=== PATIENT | male | born 1970 | race Caucasian/White ===

== ENCOUNTER 2016-10-30 22:47 | Emergency (ER) | payer BC ==
--- NOTE | ~2016-10-30 | CR106 ---
[facility] A Service of [facility] & [facility] RADIOLOGY TEXT RESULTS PATIENT: TONY RICHARDS LOCATION: [facility] : 74 UNIT #: [id number] AGE: [address]: Kiya Cruz MD SEX: M ORDER DR: [id number] [facility] [address] [place], [place] [address] [id number] E MR#: [id number] Acc #: [id number] NAME: TONY RICHARDS. : 1970 SEX: M STUDY DATE/TIME: 10/30/2016 21:29 UNIT: [facility] ROOM: STUDY DESCRIPTION: CR Femur 2 Views Lt Attending Physician: Kiya Cruz M.D. Ordering Physician: Kelechi Grigsby D.O. Primary Care Physician: Rola Marcus M.D. MEDICAL IMAGING REPORT This report is preliminary unless electronic signature is present EXAM Left femur AP and lateral HISTORY Leg pain after crush injury today. FINDINGS AP and lateral views of left femur demonstrate satisfactory bone alignment. Minimal hypertrophic changes in the knee and left hip. No fracture. IMPRESSION No acute findings. Dictated by... Abdelrahman Joyce M.D. THIS IS AN ELECTRONICALLY VERIFIED REPORT Abdelrahman Joyce M.D. at 10/31/2016 5:16 PM DFL/jamal TD: 10/31/2016 03:54 JOB #: [id number] MEDICAL IMAGING REPORT Page 1 of 1 COPY
--- NOTE | ~2016-10-30 | CR169 ---
[facility] A Service of [facility] & [facility] RADIOLOGY TEXT RESULTS PATIENT: TONY RICHARDS LOCATION: [facility] : 74 UNIT #: [id number] AGE: [address]: Kiya Cruz MD SEX: M ORDER DR: [id number] [facility] [address] [place], [place] [address] [id number] E MR#: [id number] Acc #: [id number] NAME: TONY RICHARDS. : 1970 SEX: M STUDY DATE/TIME: 10/30/2016 21:23 UNIT: [facility] ROOM: STUDY DESCRIPTION: CR Knee 2 Views Lt Attending Physician: Kiya Cruz M.D. Ordering Physician: Kelechi Grgisby D.O. Primary Care Physician: oRla Marcus M.D. MEDICAL IMAGING REPORT This report is preliminary unless electronic signature is present EXAM Left knee HISTORY Crush injury today and knee pain. FINDINGS 2 views left knee demonstrate satisfactory knee alignment. No joint space narrowing, fracture or effusion. Prominent enthesophytes along the superior and inferior margins of the patella. IMPRESSION No acute findings. Satisfactory knee alignment. Dictated by... Abdelrahman Joyce M.D. THIS IS AN ELECTRONICALLY VERIFIED REPORT Abdelrahman Joyce M.D. at 10/31/2016 5:16 PM DFL/jamal TD: 10/31/2016 03:43 JOB #: [id number] MEDICAL IMAGING REPORT Page 1 of 1 COPY
--- NOTE | ~2016-10-30 | CR206 ---
[facility] A Service of [facility] & [facility] RADIOLOGY TEXT RESULTS PATIENT: TONY RICHARDS LOCATION: [facility] : 74 UNIT #: [id number] AGE: [address]: Kiya Cruz MD SEX: M ORDER DR: [id number] [facility] [address]. [place], [place] [address] [id number] E MR#: [id number] Acc #: [id number] NAME: TONY RICHARDS. : 1970 SEX: M STUDY DATE/TIME: 10/30/2016 21:27 UNIT: [facility] ROOM: STUDY DESCRIPTION: CR Pelvis 1 or 2 Views Attending Physician: Kiya Cruz M.D. Ordering Physician: Kelechi Grigsby D.O. Primary Care Physician: Rola Marcus M.D. MEDICAL IMAGING REPORT This report is preliminary unless electronic signature is present EXAM AP pelvis HISTORY Pelvic pain after crush injury today. FINDINGS AP view of the pelvis demonstrates satisfactory bone alignment. No fracture, joint space narrowing or dislocation. Normal mineralization. IMPRESSION No acute findings. No fracture. Dictated by... Abdelrahman Joyce M.D. THIS IS AN ELECTRONICALLY VERIFIED REPORT Abdelrahman Joyce M.D. at 10/31/2016 5:16 PM DFL/jamal TD: 10/31/2016 03:48 JOB #: [id number] MEDICAL IMAGING REPORT Page 1 of 1 COPY
--- NOTE | ~2016-10-30 | CR63 ---
[facility] A Service of [facility] & [facility] RADIOLOGY TEXT RESULTS PATIENT: TONY RICHARDS LOCATION: [facility] : 74 UNIT #: [id number] AGE: [address]: Kiya Cruz MD SEX: M ORDER DR: [id number] [facility] [address] [place], [place] [address] [id number] E MR#: [id number] Acc #: [id number] NAME: TONY RICHARDS. : 1970 SEX: M STUDY DATE/TIME: 10/30/2016 21:16 UNIT: [facility] ROOM: STUDY DESCRIPTION: CR Chest 2 View Attending Physician: Kiya Cruz M.D. Ordering Physician: Kelechi Grigsby D.O. Primary Care Physician: Rola Marcus M.D. MEDICAL IMAGING REPORT This report is preliminary unless electronic signature is present EXAM PA and lateral chest HISTORY Shortness of air today after crush injury. FINDINGS 2 views of the chest demonstrate the cardiac and mediastinal contours are normal. No infiltrates or effusions. Moderate hypertrophic spurring upper and lower thoracic spine. Mild degenerative changes in both shoulders. IMPRESSION No acute findings Dictated by... Abdelrahman Joyce M.D. THIS IS AN ELECTRONICALLY VERIFIED REPORT Abdelrahman Joyce M.D. at 10/31/2016 5:16 PM DFL/jamal TD: 10/31/2016 03:40 JOB #: [id number] MEDICAL IMAGING REPORT Page 1 of 1 COPY
[2016-10-30 21:36] LABS: BASOPHIL% 0.3 % (0-2.5); DIFF IND NO; EOSINOPHIL# 0.2 X10e3 (0-0.7); EOSINOPHIL% 2.1 % (0.0-7.0); HEMATOCRIT 43.8 % (38.0-50.0); HEMOGLOBIN 14.7 gm/dL (13.0-16.0); LYMPHOCYTE# 1.2 X10e3 (1.0-3.5); LYMPHOCYTE% 13.7 % (17.0-45.0); MEAN CELL VOLUME 84.5 FL (83-96); MEAN CORPUSCULAR HEMOGLOBIN 28.4 PG (28-34); MEAN CORPUSCULAR HGB CONC 33.6 g/dL (30-36); MEAN PLATELET VOLUME 7.8 FL (6.5-11.5); MONOCYTE# 0.6 X10e3 (0-1.0); MONOCYTE% 6.6 % (3.0-12.0); NEUTROPHIL% 77.3 % (40-75); PLATELET COUNT 213 X10e3 (140-420); RED BLOOD COUNT 5.18 X10e (3.90-5.60); RED CELL DISTRIBUTION WIDTH 13.4 % (11.0-15.5); WHITE BLOOD COUNT 9.1 X10e3 (4.0-10.5)
[2016-10-30 22:33] LABS: BUN/CREATININE RATIO 15.83; CALCIUM SERUM 9.1 mg/dL (8.4-10.2); CREATININE SERUM 1.2 mg/dL (0.6-1.4); GLOM FILT RATE Estimated 73.1 mL/min (>60); POTASSIUM 4.4 mmol/L (3.5-5.1)
[~2016-10-30 22:47] MED LIST: ACETAMINOPHEN PO; ASCORBIC ACID500 M2 PO; ASPIRIN81 M1 PO; DIAZEPAM PO; DOCUSATE SODIU100 MG PO; EFFEXOR50 MG PO; EFFEXOR75 M1 PO; EFFEXOR75 M2 PO; FERRO-TIME325 MG PO; FERROUS SULFATE1 TAB PO; FISH OIL 1,01 CAP.EC PO; FISH OIL500 M1 PO; IRON325 ( 651 PO; KEFLEX500 MG PO; LISINOPRIL20 MG PO; MIRALAX17 GM PO; MIRAPEX1 MG PO; MODAFINIL100 MG PO; MULTI VITAMIN1 EACH PO; MULTI-DAY VITAM1 TAB PO; NIACIN500 M2 PO; OMEGA 3 FISH OI1 CAP PO; OMEPRAZOLE40 M1 PO; OMEPRAZOLE40 MG PO; PERCOCET 10/3251 TAB PO; PRILOSEC PO; PRINIVIL10 MG PO; [UNRECOGNIZED DRUG - OTHER] PO
== END 2016-10-30 23:42 | disposition home or self-care (01) ==
LOC: CFTX 22:47
PROVIDERS: Emergency Medicine
DX: S70.12XA Contusion of left thigh, initial encounter (principal); I10 Essential (primary) hypertension; K21.9 Gastro-esophageal reflux disease without esophagitis; F32.9 Major depressive disorder, single episode, unspecified; W20.8XXA Other cause of strike by thrown, projected or falling object, initial encounter; Y92.69 Other specified industrial and construction area as the place of occurrence of the external cause; Y99.0 Civilian activity done for income or pay
CPT/HCPCS: 29505; 36415; 71020; 72170; 73552; 73560; 80048; 82550; 85025; 96374; 96375; 99284; J1170; J2405

== ENCOUNTER 2016-11-09 19:25 | Inpatient (IN) | payer BC ==
--- NOTE | ~2016-11-09 | CR7 ---
[facility] A Service of [facility] & [facility] RADIOLOGY TEXT RESULTS PATIENT: TONY RICHARDS LOCATION: [place] [address] : 74 UNIT #: [id number] AGE: [address]: Shellie Skinner MD SEX: M ORDER DR: [id number] [facility] [address] [place], [place] [address] [id number] I MR#: [id number] Acc #: [id number] NAME: TONY RICHARDS : 1970 SEX: M STUDY DATE/TIME: 11/11/2016 10:35 UNIT: [facility] ROOM: [facility] STUDY DESCRIPTION: CR Abdomen Single AP View Attending Physician: Shellie Skinner M.D. Ordering Physician: Shellie Skinner M.D. Primary Care Physician: Rola Marcus M.D. MEDICAL IMAGING REPORT This report is preliminary unless electronic signature is present EXAM KUB HISTORY Lower right-side abdominal pain beginning 2 days ago. TECHNIQUE A single view of the abdomen was obtained. FINDINGS AP, supine view of the abdomen shows normal bowel gas pattern. No abnormal masses or calculi are seen. The osseous structures appear normal. No soft tissue abnormality is seen. IMPRESSION Normal KUB. Dictated by... Angel Ramirez M.D. THIS IS AN ELECTRONICALLY VERIFIED REPORT Angel Ramirez M.D. at 11/12/2016 9:12 AM ARABELLAF/ashwin TD: 11/11/2016 11:35 JOB #: [id number] MEDICAL IMAGING REPORT Page 1 of 1 COPY
--- NOTE | ~2016-11-09 | US84 ---
[id number] [facility]. [facility] [address] [place], [place] [address] [id number] I MR#: [id number] Acc #: [id number] NAME: TONY RICHARDS : 1970 SEX: M STUDY DATE/TIME: 11/10/2016 10:40 UNIT: C5B ROOM: 559 STUDY DESCRIPTION: US LE Veins Complete Osorio Stdy Attending Physician: Shellie Skinner M.D. Ordering Physician: Prabha Garnica M.D. Primary Care Physician: Rola Marcus M.D. MEDICAL IMAGING REPORT This report is preliminary unless electronic signature is present EXAMINATION Bilateral lower extremity Doppler venous ultrasound DATE 11/10/2016 HISTORY Bilateral extremity swelling for 1 day. Shortness of breath and chest pain for 1 day. Bilateral pulmonary emboli seen on CT chest 11/09/2016. COMPARISON CT chest PE protocol 11/09/2016. Bilateral lower extremity Doppler venous ultrasound 01/05/2016. FINDINGS Real-time polanco-scale, color Doppler, and spectral Doppler imaging was performed of the bilateral lower extremity veins from the groin to the calf regions. The right common femoral, femoral, anterior and posterior tibial, peroneal, popliteal veins demonstrate normal flow, compressibility and/or augmentation without evidence of right lower extremity deep venous thrombosis. Deep venous thrombosis is demonstrated within the left popliteal, anterior and posterior tibial and peroneal veins. The left common femoral, superficial femoral veins remain patent. No superficial venous thrombus is seen. IMPRESSION 1. Findings positive for left lower extremity deep venous thrombosis involving the left popliteal, anterior and posterior tibial and peroneal veins. 2. No right lower extremity deep venous thrombosis. Dictated by... Guillermina Fernandez M.D. THIS IS AN ELECTRONICALLY VERIFIED REPORT Guillermina Fernandez M.D. at 11/13/2016 8:32 AM LLPartha/edison TD: 11/10/2016 15:23 JOB #: [id number] MEDICAL IMAGING REPORT Page 1 of 1 COPY
--- NOTE | ~2016-11-09 | CT16 ---
"[facility] A Service of [facility] & [facility] RADIOLOGY TEXT RESULTS PATIENT: TONY RICHARDS [address] 74 UNIT #: [id number] AGE: [address]: Shellie Skinner MD SEX: M ORDER DR: [id number] [facility] [address] [place], [place] [address] [id number] E MR#: [id number] Acc #: [id number] NAME: TONY RICHARDS. : 1970 SEX: M STUDY DATE/TIME: 11/09/2016 20:56 UNIT: [facility] ROOM: STUDY DESCRIPTION: CT Angio Chest for PE Attending Physician: Angel Stevenson M.D. Ordering Physician: Angel Stevenson M.D. Primary Care Physician: Rola Marcus M.D. MEDICAL IMAGING REPORT This report is preliminary unless electronic signature is present EXAM CT angiography chest for PE. HISTORY Had quadriceps repair today. Possible blood clot, short of air x2 weeks. TECHNIQUE This CT exam was performed with one or more of the following radiation dose reduction techniques: automatic exposure control, adjustment of mA and/or kV according to patient size, and iterative reconstruction. CT pulmonary angiography performed with intravenous administration of 100 mL Isovue-370. COMPARISON STUDIES Limited views of the chest from CT coronary angiography dated 01/04/2016. FINDINGS Thyroid unremarkable. No axillary, mediastinal or hilar adenopathy. Heart [id number] limits of normal in size. No pleural effusions. Visualized portions of liver, gallbladder, spleen, pancreas, adrenal glands, upper renal poles, esophagus, stomach, small bowel and colon unremarkable. Ill-defined area of patchy vaguely nodular and irregularly marginated airspace disease in the left upper lobe near the apex. Favored to represent area of pneumonia or developing pulmonary infarct. Some mild peribronchial hazy densities in the more central left upper lobe. Left lower lobes clear. The right lung is clear. Suboptimal opacification of the pulmonary arteries but there are clearly bilateral pulmonary emboli present. Poor opacification of subsegmental pulmonary arteries in the left apex in area of above described airspace disease, but this represents STS. [facility] A Service of [facility] & [facility] RADIOLOGY TEXT RESULTS PATIENT: TONY RICHARDS [facility]: [id number] 74 UNIT #: [id number] AGE: [address]: Shellie Skinner MD SEX: M ORDER DR: poor opacification due to poor perfusion on the basis of underlying pneumonia or thromboembolic disease with associated infarct is unclear. There is clearly near occlusive embolus in the left upper lobe lingular segmental artery. Ill-defined emboli in the left lower lobe segmental and subsegmental pulmonary arteries involving posterior basilar segments. Opacification of the right upper lobe pulmonary artery and middle lobe pulmonary artery is poor, but I am concerned that there is significant clot burden in the proximal right truncus anterior in the interlobar artery, and there is clearly thrombus in the right middle lobe artery at least proximal medial and lateral segmental arteries in the right lower lobe pulmonary artery and extending into multiple right lower lobe segmental and subsegmental pulmonary arteries. The RV, LV ratio is approximately 4.25/ 4.38. The aorta is normal in caliber. No dissection. Visualized branch vessels patent. Bony structures show no acute abnormality. Degenerative changes in the spine. Subcutaneous approximately 2-3 mm metallic density in the anterior left paracentral chest felt to reflect prior penetrating trauma. Hypodense subcutaneous nodule anterior midline chest wall measuring 1.4 cm x 2.3 cm most likely some form of cutaneous inclusion cyst. Correlate with exam. IMPRESSION 1. Findings discussed with Dr. Stevenson at time of this dictation. Multiple bilateral pulmonary emboli in the bilateral upper and lower lobes and in the right middle lobe. Some of these are difficult to visualize due to timing of contrast bolus, but multiple emboli are felt to be present. Probable small subsegmental emboli at the left apex. Near occlusive embolus in the left upper lobe lingular segmental artery. Nonocclusive emboli in the left lower lobe posterior basilar segmental and subsegmental pulmonary arteries. Prominent emboli suggested in the right upper lobe truncus anterior, intralobar pulmonary artery, the right middle lobe pulmonary artery and its medial and lateral segmental branches and in multiple right lower lobe segmental and subsegmental pulmonary arteries.| 2. RV/LV ratio approximately 4.25/ 4.38. 3. Heart upper limits of normal in size to borderline enlarged. 4. Not mentioned in body report above, the main pulmonary artery is prominent measuring 3.44 cm in diameter. This could be a reflection of elevated pulmonary arterial pressure on the basis of the pulmonary embolic load. 5. No aortic aneurysm or dissection. Visualized branch vessels Patent. 6. Patchy somewhat irregularly marginated airspace disease in the left apex. Primary considerations include apical pneumonia or evolving pulmonary infarct. Short-interval followup to confirm resolution recommended. The visualized upper abdomen shows no acute abnormality. 7. Please see remainder of incidental findings in body of report above. [facility]. [facility] A Service of [facility] RADIOLOGY TEXT RESULTS PATIENT: TONY RICHARDS LOCATION: [place] [address] : 74 UNIT #: [id number] AGE: [address]: Shellie Skinner MD SEX: M ORDER DR: Dictated by... Kennedy Jose M.D. THIS IS AN ELECTRONICALLY VERIFIED REPORT Kennedy Jose M.D. at 11/10/2016 7:52 PM STANLEY/aron TD: 11/09/2016 22:33 JOB #: [id number] MEDICAL IMAGING REPORT Page 1 of 1 COPY"
--- NOTE | ~2016-11-09 | BMI ---
[facility] Nutrition Therapy DATE: 11/10/16 Patient: TONY Boykin RICHARDS Physician: CARRIE Address: [address] [place] [address] Room/Bed: [address] [place] [address], Zip: [place] [address] Admit Date: 11/09/16 Date of : 74 Height: 5 11 Weight: 293 133 HIGH BMI NOTE: DX: 46 Y.O. MALE ADMITTED FOR BILATERAL PE LIKELY LEG DVT ANTHROPOMETRICS: 5'11", WT: 293# (133 KG), BMI: 40.9 DIET: HH INTERVENTION: 1. DIET RECOMMENDATIONS: 1. CONTINUE CURRENT DIET ORDER ABOVE TO PROMOTE GRADUAL WEIGHT LOSS TOWARDS HEALTHY BMI (19.0-25.0) OR +/-10%IBW RD WILL F/U PER PROTOCOL Respectfully, KIP BELLO MS, RD, LD Food and Nutrition[facility] cc: client file
--- NOTE | ~2016-11-09 | DS ---
Unit #: [id number] #: [id number] Patient: TONY RICHARDS [id number] [address] [address] [id number] I MR#: [id number] NAME: TONY RICHARDS. ROOM: 310 Age: 46 Sex: M Admission Date: 11/09/2016 : 1970 Discharge Date: Attending Physician: Shellie Skinner M.D. Primary Care Physician: Rola Marcus M.D. DISCHARGE SUMMARY DISCHARGE DIAGNOSES 1. Acute pulmonary embolism status post EKOS. 2. Left leg acute deep vein thrombosis. 3. Recent left quadriceps tendon repair done on November 09, 2016. 4. Acute postoperative respiratory failure after surgery. 5. Hypertension. 6. Obstructive sleep apnea, on continuous positive airway pressure. 7. Restless leg syndrome. 8. Gastroesophageal reflux disease. 9. Benign prostatic hypertrophy. 10. History of depression. 11. History of hiatal hernia. 12. History of hemorrhoid status post surgery. 13. History of excision of benign intracranial tumor as a teenager. 14. Morbid obesity. CONSULTATIONS 1. Dr. Chaparro. 2. Dr. Reed. 3. Dr. Stephen. PROCEDURES Patient had EKOS. DIAGNOSTIC TESTING IMAGING: Ultrasound of the extremities shows positive for left lower leg DVT. CT angio chest shows multiple bilateral PE. LAB DATA: Sodium 137, potassium 4.3, creatinine 1.1. INR 1.2. WBC 10.2, hemoglobin 13.5, platelets 198. ALLERGIES None. DISCHARGE MEDICATIONS 1. Flomax 0.4 mg p.o. daily. 2. Xarelto 15 mg p.o. b.i.d. for a total of 21 days, followed by Xarelto 20 mg p.o. daily. 3. Effexor 150 p.o. daily. 4. Colace 100 p.o. b.i.d. 5. Mirapex 2 mg p.o. daily. 6. Fenofibrate 160 mg at bedtime. Unit #: [id number] #: [id number] Patient: TONY RICHARDS 7. Lisinopril 20 mg p.o. daily. 8. Ferrous sulfate 325 p.o. daily. 9. [place] 3 fish oil 1,000 mg p.o. daily. 10. Multivitamin 1 tablet daily. 11. Percocet 5 mg q.3 p.r.n. pain. 12. Omeprazole 40 p.o. daily. 13. Niacin 500 daily. 14. Ascorbic acid 500 daily. HOSPITALIZATION COURSE A 46 year old admitted because of bilateral PE. Bilateral pulmonary embolism with acute left leg DVT. Patient had left quadriceps tendon repair on November 09, 2016. After that, patient had hypoxia and found to have bilateral pulmonary embolism and DVT. Currently patient is off oxygen. He was started on heparin. Currently he is on Xarelto. Patient was seen by Dr. Chester. According to Dr. Chester, patient will continue with Xarelto and follow with him in 4 weeks' time. Patient was seen by Dr. Chaparro. Patient had EKOS, was in ICU for a few days. Currently his oxygenation is better. Status post left quadriceps tendon repair. Patient was seen by orthopedic doctor. Patient was bedrest because of acute PE. Later patient received physical therapy. Patient will have home health and physical therapy upon discharge. Patient will follow with Dr. Allison in 1 week's time for followup. History of anemia. Currently stable. Iron deficiency, chronic. Acute postop respiratory failure secondary to PE. Resolved. DISCHARGE PLAN 1. Plan discussed with . 2. Discussed with patient and regarding the Xarelto side effects, including bleeding and . They understand. I also educated him on no antidote and the necessity to follow with his family doctor and Dr. Chesetr while he is on Xarelto. He understands the instructions. 3. The patient will be discharged home. 4. Follow with family physician in 1 week's time. 5. Follow with Dr. Chester in 4 weeks' time. 6. Follow with Dr. Allison in 1 week's time. NOTE: Discharge time taken is 32 minutes. Dictated by... Rody Clinton TD: 11/13/2016 10:42 JOB #: [id number] Unit #: [id number] #: [id number] Patient: TONY RICHARDS DISCHARGE SUMMARY Page 1 of 1 X Shellie Skinner MD DISCHARGE SUMMARY
--- NOTE | ~2016-11-09 | EKG ---
PATIENT: TONY RICHARDS UNIT #: [id number] Ventricular Rate: 96 BPM Atrial Rate: 96 BPM P-R Interval: 166 ms QRS Duration: 100 ms Q-T Interval: 362 ms QTC Calculation(Bezet): 457 ms P [place]: 56 degrees Calculated R [place]: 57 degrees Calculated T [place]: 29 degrees Diagnosis Line: Normal sinus rhythm Diagnosis Line: Normal ECG Diagnosis Line: When compared with ECG of 28-JAN-2016 07:04, Diagnosis Line: No significant change was found Diagnosis Line: Confirmed by MALINI CHAMBERS MD ([id number]) on Diagnosis Line: 11/10/2016 8:54:48 AM INTERPRETING MD: TRISH WASHINGTON
--- NOTE | ~2016-11-09 | CO ---
Unit #: [id number] #: [id number] Patient: TONY RICHARDS [id number] [address] [address] [id number] I MR#: [id number] NAME: TONY RICHARDS. ROOM: [facility] Age: 46 Sex: M Admission Date: 11/09/2016 : 1970 Attending Physician: Shellie Skinner M.D. Primary Care Physician: Rola Marcus M.D. CONSULTATION REPORT REASON FOR CONSULTATION Bilateral pulmonary embolism. HISTORY OF PRESENT ILLNESS This is a 46-year-old white male, who was admitted to the hospital, because of shortness of breath. He was unloading a 300-pound tank on 10/30/2016 with his son when it fell landing on his left knee. MRI of his knee revealed a tear to his left quadriceps. He underwent repair of the tendon per Dr. Stephen yesterday. Afterwards, the patient was hypoxic with oxygen saturation level of 91%. CTA of the chest revealed bilateral pulmonary embolism. He was placed on heparin drip. Doppler study of his left lower extremity revealed deep vein thrombosis. There was some suggestion of pneumonia. PAST MEDICAL HISTORY 1. Hypertension. 2. Hyperlipidemia. 3. Obstructive sleep apnea, wears CPAP. 4. Benign intracranial tumor at age 17, status post resection. 5. Restless legs syndrome. 6. Hiatal hernia repair. 7. Former smoker. PAST SURGICAL HISTORY 1. Left quadriceps tendon repair on 11/09/2016. 2. Shoulder surgery. 3. Right hand surgery. 4. Excision of a benign intracranial tumor. 5. Hemorrhoidectomy. SOCIAL HISTORY The patient is . 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 He quit smoking more than 20 years ago. Drinks alcohol on occasion. FAMILY HISTORY Negative for coronary artery disease. ALLERGIES No known drug allergies. HOME MEDICATIONS Flomax 0.4 mg daily, omeprazole 40 mg daily, fenofibrate 160 mg daily, ferrous sulfate 325 mg daily, lisinopril 20 mg daily, venlafaxine 75 mg Unit #: [id number] #: [id number] Patient: TONY RICHARDS daily, Mirapex 1 mg daily. REVIEW OF SYSTEMS CONSTITUTIONAL: Negative for fever or chills. He has no weight gain or weight loss. HEENT: No headache, hearing or vision changes, or difficulty with swallowing. No dizziness. CARDIOVASCULAR: Has no symptoms of angina. Denies palpitations. No paroxysmal nocturnal dyspnea or orthopnea. No syncope or near syncope. RESPIRATORY: Positive for dyspnea. No cough or hemoptysis. GASTROINTESTINAL: No abdominal pain, nausea, or vomiting. No constipation or melena. EXTREMITIES: Positive for left lower extremity edema. PHYSICAL EXAMINATION VITAL SIGNS: Blood pressure 118/63, heart rate 90, temperature 98.9, BMI 40. GENERAL: This is a pleasant 46-year-old, obese white male, who is in mild respiratory distress. NEUROLOGIC: He is awake, alert, and oriented. There are no focal weaknesses. NECK: Trachea is midline. No thyromegaly or lymphadenopathy. No jugular venous distention. HEART: S1 and S2. Heart sounds are normal. No murmurs, rubs, or clicks. Regular rate and rhythm. LUNGS: Clear without rales, rhonchi, or wheezes. ABDOMEN: Soft and nontender with bowel sounds are present. EXTREMITIES: With leg edema to the left leg. Noted for left leg immobilizer. DIAGNOSTIC STUDIES LABORATORY RESULTS: Glucose 105, BUN 16, creatinine 1.2. Sodium 137, potassium 4.1. D-dimer 8999. Troponin 0.05. White count 15.4, hemoglobin 13.5, hematocrit 41.3, platelet count 207. IMAGING STUDIES: CTA of the chest reveals multiple bilateral pulmonary emboli in the upper and lower lobes and the right middle lobe. Probable small segmental emboli on the left apex. Near occlusive embolus in the left upper lobe lingular segmental artery. Nonocclusive emboli on the left lower lobe. Heart size upper limits of normal to borderline enlarged. Main pulmonary artery is prominent at 3.44 cm in diameter. Patchy airspace disease in the left apex. Ultrasound of bilateral lower extremities is positive for left lower extremity deep vein thrombosis involving the left popliteal anterior and posterior tibial and peroneal veins. CARDIOVASCULAR STUDIES: EKG; normal sinus rhythm with a rate of 96 beats per minute. Otherwise, normal. IMPRESSION 1. Bilateral pulmonary embolism. 2. Status post surgical repair of the left quadriceps tendon. 3. Hypertension. 4. Hyperlipidemia. 5. Obstructive sleep apnea. PLAN Unit #: [id number] #: [id number] Patient: TONY RICHARDS 1. Cardiology was asked to see the patient for possible thrombolytic treatment for bilateral pulmonary embolism. I would suggest EKOS thrombolytic therapy. He is currently on a heparin drip. 2. A 2D echocardiogram is pending to rule out right heart strain. 3. It was discussed with the patient and at length as well as Dr. Stephen. Suggested 24 hours after surgery, his risk of bleeding will be very high. The patient was agreeable to proceed. Dictated by... Krista MaxwellPCiprianoRLala for Rody Burr/lillian TD: 11/11/2016 04:07 JOB #: [id number] CONSULTATION REPORT Page 1 of 1 X Florentino Carpenter APRN X CONSULTATION REPORT
--- NOTE | ~2016-11-09 | CO ---
Unit #: [id number] #: [id number] Patient: TONY RICHARDS [id number] [address] [place], [place] [address] [id number] I MR#: [id number] NAME: TONY RICHARDS ROOM: 559 Age: 46 Sex: M Admission Date: 11/09/2016 : 1970 Attending Physician: Shellie Skinner M.D. Primary Care Physician: Rola Marcus M.D. CONSULTATION REPORT CHIEF COMPLAINT Left lower extremity DVT, bilateral PE, history of anemia secondary to bleeding from hemorrhoids. HISTORY OF PRESENT ILLNESS This is a 46-year-old male who about six months ago received PRBC transfusion for anemia. Patient had bleeding from the hemorrhoids. This is managed by my partner, Dr. Chester. On (1) , he had an accident at his work. A tank fell down on his left knee. Patient had damage of the quadriceps tendon. It was stabilized. Yesterday, he had surgery. Subsequently, he developed short of breath. The patient had a CT of the chest PE protocol on November 09, 2016. There is bilateral PE, right greater than the left. There may be right ventricular (2) . In left upper lobe, there is some possible pneumonia. Patient had venous Doppler ultrasound. In left lower extremity, there is DVT. Patient has left knee pain and some chest tightness. His is around. She has multiple questions. REVIEW OF SYSTEMS CONSTITUTIONAL: No fever, no chills, no sweats, no weight loss. EYES: No visual symptoms. EARS, NOSE AND THROAT: There is no runny nose or sore throat or difficulty hearing. CARDIOVASCULAR: No chest pain. No shortness of breath. No palpitations. No orthopnea. No PND. RESPIRATORY: As mentioned above. GASTROINTESTINAL: No nausea, vomiting, diarrhea, constipation, hematochezia or melena. GENITOURINARY: No urinary frequency, hesitancy or urgency. No blood in the urine. MUSCULOSKELETAL: As mentioned above. NEUROLOGIC: No headache. No numbness or tingling. No weakness. No seizure. PSYCHIATRIC: No anxiety, depression or mood disturbance. ENDOCRINE: No excessive urination or thirst. DERMATOLOGIC: No rash or change in the skin. ALLERGIC/IMMUNOLOGIC: No symptoms. HEMATOLOGIC/LYMPHATIC: Denies any symptoms. Unit #: [id number] #: [id number] Patient: TONY RICHARDS PAST MEDICAL HISTORY 1. Recurrent anemia, secondary to bleeding from the hemorrhoids, now left lower extremity deep venous thrombosis/pulmonary embolus. 2. Sleep apnea on CPAP machine. ALLERGIES None. SOCIAL HISTORY No smoking. No alcohol. No drugs. He actually quit 20 years ago. He smoked a few years. PAST SURGICAL HISTORY 1. 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 2. Right hand surgery. 3. Right shoulder surgery. 4. Hemorrhoidal surgery. FAMILY HISTORY Father had a AAA. No one in the family had thrombosis, bleeding. PHYSICAL EXAMINATION VITAL SIGNS: Afebrile, pulse 90, respiratory rate 18, O2 saturations on 4 L 98%, blood pressure 118/63. GENERAL: Patient is comfortable. ECOG is 0. The patient is pleasant. HEENT: Moist mucosa. Pupils equally reactive to light. Extraocular muscles intact. Sclerae anicteric. No obvious bleeding from nasal mucosa or oral mucosa. Scalp normal. Hearing normal. NECK: No JVD. No lymphadenopathy. LYMPHATIC/HEMATOLOGIC: There is no palpable adenopathy in the neck, axilla or inguinal area. CARDIOVASCULAR: S1, S2. Regular rate and rhythm. No S3 or S4. RESPIRATORY: Chest symmetrical, normal. Clear to auscultation bilaterally. No wheezes, no rales, no rhonchi. No dullness to percussion. ABDOMEN/GASTROINTESTINAL: Abdomen is soft, nontender, nondistended. No hepatosplenomegaly. EXTREMITIES: There is no clubbing, no cyanosis, no edema. No varicose veins. NEUROLOGICAL: Patient is alert, awake and oriented x3. Cranial nerves II-XII are intact. Sensory grossly intact. Motor is 4/5 in all four extremities. Gait is normal. Station is normal. Language is normal. Memory is normal. DTRs +2 in all four extremities. MUSCULOSKELETAL: No joint swelling. No bony tenderness. No muscle tenderness. SKIN: No petechiae, no rash, no ecchymosis. PSYCHIATRIC: No anxiety. No delusions or hallucinations. There is no agitation. Eye contact is normal. Affect is appropriate. There is no flight of ideas. DIAGNOSTIC STUDIES LABORATORY: Creatinine 1.2. WBC 15.4, hemoglobin 13.5, MCV 85, platelets 207,000. IMAGING: As mentioned above. ASSESSMENT AND PLAN This is a 46-year-old male with the following active issues: 1. Pulmonary embolus: Patient has bilateral pulmonary embolus, right Unit #: [id number] #: [id number] Patient: TONY RICHARDS greater than the left. The patient had left lower extremity deep venous thrombosis. This happened after the left knee injury and surgery. I had extensive discussion with patient and his . I will get 2D echo. I will ask cardiology team for possible EKOS. 2. Anemia: His hemoglobin is stable. Dr. Chester will see the patient in the a.m. Dictated by... Rupert Reed M.D. Fercho TD: 11/10/2016 16:00 JOB #: [id number] CONSULTATION REPORT Page 1 of 1 X Rupert Reed MD X CONSULTATION REPORT
--- NOTE | ~2016-11-09 | HP ---
Unit #: [id number] #: [id number] Patient: TONY RICHARDS [id number] [address] [address] [id number] I MR#: [id number] NAME: TONY RICHARDS. ROOM: 00283 Age: 46 Sex: M Admission Date: 11/09/2016 : 1970 Attending Physician: Prabha Garnica M.D. Primary Care Physician: Rola Marcus M.D. HISTORY AND PHYSICAL CHIEF COMPLAINT Bilateral PEs and likely left leg DVT. HISTORY OF PRESENT ILLNESS This pleasant 46-year-old male with obstructive sleep apnea, hypertension, is admitted for bilateral PEs. The patient ruptured his left quadriceps tendon 10 days ago. He was wearing a knee immobilizer. Today underwent surgery to repair the tendon, was hypoxic afterwards. He was sent to this emergency department with initial O2 saturation of 91%. CTA was performed of the chest showing multiple bilateral PEs in the upper and lower lobes along with borderline cardiomegaly. Could be a left apex pulmonary infarct as well. The patient was given 10 mg of Percocet, and currently is receiving heparin high-intensity drip. No previous history of blood clots, or family history of blood clots. The patient has, however, noted increasing left calf pain. Patient noted increasing shortness of breath over the past week with the left calf pain. PAST MEDICAL HISTORY 1. Hyperlipidemia. 2. Hypertension. 3. Hiatal hernia. 4. Depression. 5. Obstructive sleep apnea. 6. Restless leg syndrome. 7. BPH. 8. Hemorrhoidectomy x3. 9. Excision of a benign intracranial tumor as a teenager. 10. Shoulder surgery. 11. Right hand surgery. 12. Tonsillectomy. ALLERGIES No known drug allergies. HOME MEDICATIONS 1. Flomax 0.4 mg daily. 2. Omeprazole 40 mg daily. 3. Fenofibrate 160 mg daily. 4. Iron sulfate 325 mg daily. 5. Lisinopril 20 mg daily. Unit #: [id number] #: [id number] Patient: TONY RICHARDS 6. Effexor 75 mg daily. 7. Mirapex 2 mg h.s. SOCIAL HISTORY The patient lives with his . He stopped smoking 20 years ago. Seldom drinks alcohol. FAMILY HISTORY Negative for blood clots. REVIEW OF SYSTEMS Notable for some chest tightness, shortness of breath over the past week and a half with calf pain a week ago. Hyperlipidemia, hypertension, hiatal hernia, depression, obstructive sleep apnea, restless leg syndrome, BPH and above-mentioned surgeries. All other systems were reviewed and are negative. PHYSICAL EXAMINATION VITAL SIGNS: Temperature 97.7, pulse 97, respirations 16, blood pressure 130/73, O2 saturation initially 91% on room air, currently is 94% on room air. GENERAL: Pleasant, obese 46-year-old male currently in no acute distress. HEENT: Eyes PERRLA. Extraocular muscles are intact. Pharynx benign. NECK: Supple without adenopathy or thyromegaly. CHEST: Clear. HEART: Normal S1, S2 without S3, S4 or murmur. ABDOMEN: Bowel sounds are present. No hepatosplenomegaly, tenderness or masses. EXTREMITIES: Left leg has slight swelling as compared to the right leg. There is an Marco wrap and a knee immobilizer in place on the left post surgery. NEUROLOGIC: Awake, alert, oriented. Cranial nerves are intact. Equal strength throughout. DIAGNOSTIC STUDIES LABORATORY: Hematocrit 43.2, white blood cell count 12, normal platelet count. D-dimer 9000. Normal coags. SMA-7 is normal. CPK is 258. IMAGING: Chest x-ray no acute disease. CTA shows multiple bilateral pulmonary emboli. CARDIOVASCULAR: EKG shows a normal sinus rhythm, rate 96. ASSESSMENT 1. Bilateral pulmonary emboli and likely left leg DVT. Again, the patient ruptured his left quadriceps tendon 10 days ago and has been wearing a knee immobilizer. He did note some increasing shortness of breath over the past week with left calf pain. 2. Left quadriceps tendon rupture which was repaired today. The patient had postoperative hypoxia. 3. Essential hypertension. 4. Obstructive sleep apnea on CPAP. 5. Restless leg syndrome. 6. Gastroesophageal reflux disease. 7. Benign prostatic hypertrophy. PLAN Unit #: [id number] #: [id number] Patient: TONY RICHARDS 1. High weight-based heparin drip. Will decide on oral anticoagulant in the morning. The patient has been seen by Dr. Chester in the past and will have Dr. Chester see in the morning as well. 2. Check venous Dopplers of the legs. 3. Orthopedic Surgery is consulting. Dictated by Rody Colindres/bryant TD: 11/09/2016 23:28 JOB #: [id number] HISTORY AND PHYSICAL Page 1 of 1 X Prabha Garnica MD HISTORY AND PHYSICAL
--- NOTE | ~2016-11-09 | CR72 ---
[facility]. [facility] A Service of [facility] RADIOLOGY TEXT RESULTS PATIENT: TONY RICHARDS LOCATION: [place] [address] : [birth year] UNIT #: [id number] AGE: [address]: Shellie Skinner MD SEX: M ORDER DR: [id number] [facility] [address] [facility]. [place], [place] [address] [id number] MR#: [id number] Acc #: [id number] NAME: TONY RICHARDS : 1970 SEX: M STUDY DATE/TIME: 11/09/2016 19:38 UNIT: JOSEFINA ROOM: STUDY DESCRIPTION: CR Chest Single View Portable Attending Physician: Angel Stevenson M.D. Ordering Physician: Angel Stevenson M.D. Primary Care Physician: Rola Marcus M.D. MEDICAL IMAGING REPORT This report is preliminary unless electronic signature is present EXAM Portable chest. HISTORY Chest pain and congestion for 2 weeks. FINDINGS Cardiac size and pulmonary vascularity are normal. No infiltrates or effusions. Lungs are clear. Relatively low lung volumes. IMPRESSION Negative. Dictated by... Abdelrahman Joyce M.D. THIS IS AN ELECTRONICALLY VERIFIED REPORT Abdelrahman Joyce M.D. at 11/10/2016 2:02 PM CEDRIC/hailee TD: 11/09/2016 21:24 JOB #: [id number] MEDICAL IMAGING REPORT Page 1 of 1 COPY
[2016-11-09 20:05] LABS: BASOPHIL% 0.3 % (0-2.5); EOSINOPHIL% 0.3 % (0.0-7.0); HEMATOCRIT 43.2 % (38.0-50.0); HEMOGLOBIN 14.4 gm/dL (13.0-16.0); LYMPHOCYTE# 0.6 X10e3 (1.0-3.5); LYMPHOCYTE% 5.3 % (17.0-45.0); MEAN CELL VOLUME 84.7 FL (83-96); MEAN CORPUSCULAR HEMOGLOBIN 28.2 PG (28-34); MEAN CORPUSCULAR HGB CONC 33.2 g/dL (30-36); MEAN PLATELET VOLUME 6.9 FL (6.5-11.5); MONOCYTE# 0.2 X10e3 (0-1.0); MONOCYTE% 1.7 % (3.0-12.0); NEUTROPHIL# 11.1 X10e3 (1.5-7.1); NEUTROPHIL% 92.4 % (40-75); PLATELET COUNT 195 X10e3 (140-420)
[2016-11-09 20:07] LABS: DIFF IND NO
[2016-11-09 20:19] LABS: POC - CKMB <1.0 ng/mL (0.0-7.9); POC - TROPONIN <0.05 ng/mL (<=0.05)
[2016-11-09 20:21] LABS: PARTIAL THROMBOPLASTIN TIME 27.4 SECONDS (23.5-31.3); PROTHROMBIN TIME (PATIENT) 10.9 SECONDS (9.6-11.5)
[2016-11-09 20:24] LABS: BUN/CREATININE RATIO 12.14; CALCIUM SERUM 9.1 mg/dL (8.4-10.2); CREATININE SERUM 1.4 mg/dL (0.6-1.4); GLOM FILT RATE Estimated 60.7 mL/min (>60); POTASSIUM 4.3 mmol/L (3.5-5.1)
[2016-11-09 22:32] LABS: POC - TROPONIN 0.05 ng/mL (<=0.05)
[2016-11-10] MEDS ORDERED: FERROUS SULFATE PO (01:57)
[2016-11-10] MEDS ORDERED: FENOFIBRATE160 MG PO (01:57)
[2016-11-10] MEDS ORDERED: FLOMAX0.4 M1 PO (01:58)
[2016-11-10 10:03] LABS: BASOPHIL# 0.1 X10e3 (0-0.3); BASOPHIL% 0.4 % (0-2.5); EOSINOPHIL% 0.1 % (0.0-7.0); HEMATOCRIT 41.3 % (38.0-50.0); HEMOGLOBIN 13.5 gm/dL (13.0-16.0); LYMPHOCYTE% 6.3 % (17.0-45.0); MEAN CORPUSCULAR HEMOGLOBIN 27.8 PG (28-34); MEAN CORPUSCULAR HGB CONC 32.7 g/dL (30-36); MONOCYTE# 1.1 X10e3 (0-1.0); MONOCYTE% 7.3 % (3.0-12.0); NEUTROPHIL# 13.3 X10e3 (1.5-7.1); NEUTROPHIL% 85.9 % (40-75); PLATELET COUNT 207 X10e3 (140-420); RED BLOOD COUNT 4.86 X10e (3.90-5.60); RED CELL DISTRIBUTION WIDTH 13.7 % (11.0-15.5); WHITE BLOOD COUNT 15.4 X10e3 (4.0-10.5)
[2016-11-10 10:06] LABS: DIFF IND YES
[2016-11-10 10:14] LABS: ALBUMIN SERUM 3.7 g/dL (3.5-5.0); BILIRUBIN,TOTAL 0.4 mg/dL (0.2-2.0); BUN/CREATININE RATIO 13.33; CALCIUM SERUM 8.6 mg/dL (8.4-10.2); CREATININE SERUM 1.2 mg/dL (0.6-1.4); GLOM FILT RATE Estimated 73.1 mL/min (>60); POTASSIUM 4.1 mmol/L (3.5-5.1); PROTEIN TOTAL SERUM 6.9 g/dL (6.0-8.3)
[2016-11-10 10:37] LABS: PLATELET ESTIMATE NORMAL (NORMAL)
[2016-11-10 10:38] LABS: TEAR DROP CELLS PRESENT
[2016-11-11 08:52] LABS: BASOPHIL# 0.1 X10e3 (0-0.3); BASOPHIL% 0.5 % (0-2.5); EOSINOPHIL# 0.2 X10e3 (0-0.7); EOSINOPHIL% 2.2 % (0.0-7.0); HEMATOCRIT 41.3 % (38.0-50.0); HEMOGLOBIN 13.4 gm/dL (13.0-16.0); LYMPHOCYTE# 1.6 X10e3 (1.0-3.5); LYMPHOCYTE% 14.6 % (17.0-45.0); MEAN CELL VOLUME 85.9 FL (83-96); MEAN CORPUSCULAR HGB CONC 32.6 g/dL (30-36); MEAN PLATELET VOLUME 7.2 FL (6.5-11.5); MONOCYTE% 9.5 % (3.0-12.0); NEUTROPHIL% 73.2 % (40-75); PLATELET COUNT 171 X10e3 (140-420); RED BLOOD COUNT 4.81 X10e (3.90-5.60); RED CELL DISTRIBUTION WIDTH 14.1 % (11.0-15.5)
[2016-11-11 08:54] LABS: DIFF IND NO
[2016-11-11 09:05] LABS: INR 1.1; PARTIAL THROMBOPLASTIN TIME 30.6 SECONDS (23.5-31.3); PROTHROMBIN TIME (PATIENT) 11.4 SECONDS (9.6-11.5)
[2016-11-11 11:29] LABS: ALBUMIN SERUM 3.4 g/dL (3.5-5.0); BUN/CREATININE RATIO 17.27; CALCIUM SERUM 8.4 mg/dL (8.4-10.2); CREATININE SERUM 1.1 mg/dL (0.6-1.4); GLOM FILT RATE Estimated 81.2 mL/min (>60); POTASSIUM 4.6 mmol/L (3.5-5.1); PROTEIN TOTAL SERUM 6.2 g/dL (6.0-8.3)
[2016-11-11 14:07] LABS: HEMATOCRIT 41.7 % (38.0-50.0); HEMOGLOBIN 13.6 gm/dL (13.0-16.0)
[2016-11-12 04:34] LABS: BASOPHIL% 0.5 % (0-2.5); EOSINOPHIL# 0.3 X10e3 (0-0.7); EOSINOPHIL% 3.5 % (0.0-7.0); HEMOGLOBIN 12.6 gm/dL (13.0-16.0); LYMPHOCYTE# 1.5 X10e3 (1.0-3.5); LYMPHOCYTE% 17.1 % (17.0-45.0); MEAN CELL VOLUME 83.7 FL (83-96); MEAN CORPUSCULAR HEMOGLOBIN 28.5 PG (28-34); MEAN CORPUSCULAR HGB CONC 34.1 g/dL (30-36); MEAN PLATELET VOLUME 7.1 FL (6.5-11.5); MONOCYTE# 0.9 X10e3 (0-1.0); MONOCYTE% 9.9 % (3.0-12.0); PLATELET COUNT 173 X10e3 (140-420); RED BLOOD COUNT 4.42 X10e (3.90-5.60); RED CELL DISTRIBUTION WIDTH 13.8 % (11.0-15.5); WHITE BLOOD COUNT 8.7 X10e3 (4.0-10.5)
[2016-11-12 04:41] LABS: DIFF IND NO
[2016-11-12 04:55] LABS: INR 1.2; PARTIAL THROMBOPLASTIN TIME 38.6 SECONDS (23.5-31.3); PROTHROMBIN TIME (PATIENT) 12.3 SECONDS (9.6-11.5)
[2016-11-12 05:11] LABS: BUN/CREATININE RATIO 18.88; CALCIUM SERUM 8.1 mg/dL (8.4-10.2); CREATININE SERUM 0.9 mg/dL (0.6-1.4); GLOM FILT RATE Estimated 103.5 mL/min (>60)
[2016-11-13 06:20] LABS: BASOPHIL# 0.1 X10e3 (0-0.3); BASOPHIL% 0.6 % (0-2.5); DIFF IND NO; EOSINOPHIL# 0.3 X10e3 (0-0.7); EOSINOPHIL% 3.2 % (0.0-7.0); HEMATOCRIT 40.4 % (38.0-50.0); HEMOGLOBIN 13.5 gm/dL (13.0-16.0); LYMPHOCYTE# 1.5 X10e3 (1.0-3.5); LYMPHOCYTE% 14.5 % (17.0-45.0); MEAN CORPUSCULAR HEMOGLOBIN 28.3 PG (28-34); MEAN CORPUSCULAR HGB CONC 33.3 g/dL (30-36); MEAN PLATELET VOLUME 7.4 FL (6.5-11.5); MONOCYTE# 0.7 X10e3 (0-1.0); MONOCYTE% 6.7 % (3.0-12.0); NEUTROPHIL# 7.7 X10e3 (1.5-7.1); PLATELET COUNT 198 X10e3 (140-420); RED BLOOD COUNT 4.76 X10e (3.90-5.60); WHITE BLOOD COUNT 10.2 X10e3 (4.0-10.5)
[2016-11-13 06:31] LABS: INR 1.2; PARTIAL THROMBOPLASTIN TIME 35.2 SECONDS (23.5-31.3); PROTHROMBIN TIME (PATIENT) 12.6 SECONDS (9.6-11.5)
[2016-11-13 07:31] LABS: BUN/CREATININE RATIO 16.36; CALCIUM SERUM 9.1 mg/dL (8.4-10.2); CREATININE SERUM 1.1 mg/dL (0.6-1.4); GLOM FILT RATE Estimated 81.2 mL/min (>60); POTASSIUM 4.3 mmol/L (3.5-5.1)
[2016-11-13] MEDS ORDERED: PERCOCET5/325 PO (09:58)
[2016-11-13] MEDS ORDERED: XARELTO15 MG PO (10:00)
[2016-11-13] MEDS ORDERED: DOCUSATE SODIU100 MG PO (10:00)
== END 2016-11-13 12:14 | disposition home or self-care (01) | DRG 175 ==
LOC: CED 19:25 → CEDOF 23:00 → C5B 11-10 00:01 → CEDOF 11-10 00:01 → C5B 11-10 08:16 → CICCU2 11-10 18:58 → C3A PCU 11-12 19:10
PROVIDERS: Emergency Medicine; Internal Medicine
PROC: B32TYZZ Computerized Tomography (CT Scan) of Left Pulmonary Artery using Other Contrast (ICD-10-PCS; principal; 2016-11-09)
PROC: B32SYZZ Computerized Tomography (CT Scan) of Right Pulmonary Artery using Other Contrast (ICD-10-PCS; 2016-11-09)
PROC: 6A751Z7 Ultrasound Therapy of Other Vessels, Multiple (ICD-10-PCS; 2016-11-10)
PROC: 3E06317 Introduction of Other Thrombolytic into Central Artery, Percutaneous Approach (ICD-10-PCS; 2016-11-10)
PROC: B246YZZ Ultrasonography of Right and Left Heart using Other Contrast (ICD-10-PCS; 2016-11-10)
DX: I26.99 Other pulmonary embolism without acute cor pulmonale (principal); J95.821 Acute postprocedural respiratory failure; I82.402 Acute embolism and thrombosis of unspecified deep veins of left lower extremity; Z68.41 Body mass index [BMI] 40.0-44.9, adult; E78.5 Hyperlipidemia, unspecified; I10 Essential (primary) hypertension; K44.9 Diaphragmatic hernia without obstruction or gangrene; G47.33 Obstructive sleep apnea (adult) (pediatric); G25.81 Restless legs syndrome; N40.0 Benign prostatic hyperplasia without lower urinary tract symptoms; S76.112A Strain of left quadriceps muscle, fascia and tendon, initial encounter; K21.9 Gastro-esophageal reflux disease without esophagitis; F32.9 Major depressive disorder, single episode, unspecified; E66.01 Morbid (severe) obesity due to excess calories; D50.9 Iron deficiency anemia, unspecified; K59.00 Constipation, unspecified
CPT/HCPCS: 36415; 71010; 71275; 74000; 80048; 80053; 82553; 82728; 83540; 83550; 84484; 85014; 85018; 85025; 85379; 85610; 85730; 93005; 93306; 93970; 94660; 94760; 94761; 97162; 97530; 99285; C1751; C1769; C1887; C1894; J1170; J1644; J2250; J2997; J3010; Q9967

== ENCOUNTER 2017-02-09 23:56 | Emergency (ER) | payer BC ==
[~2017-02-09] VITALS: Ht 180.3 cm; Wt 127.0 kg
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
[~2017-02-09 23:56] MED LIST changes: +FENOFIBRATE160 MG PO; +FERROUS SULFATE PO; +FLOMAX0.4 M1 PO; +PERCOCET5/325 PO; +XARELTO15 MG PO
== END 2017-02-10 02:27 | disposition home or self-care (01) ==
LOC: SED 23:56
DX: S09.90XA Unspecified injury of head, initial encounter (principal); S01.81XA Laceration without foreign body of other part of head, initial encounter; Z23 Encounter for immunization; I10 Essential (primary) hypertension; X50.9XXA Other and unspecified overexertion or strenuous movements or postures, initial encounter; Y92.009 Unspecified place in unspecified non-institutional (private) residence as the place of occurrence of the external cause
CPT/HCPCS: 12011; 70450; 90471; 90715; 99284